=== PATIENT | female | born 1980 | race Caucasian/White ===

== ENCOUNTER 2016-04-25 20:26 | Emergency (ER) | payer SELFPAY ==
[2016-04-25] MEDS ORDERED: METHYLPRED SOD SUCC 125 MG/2 ML VIAL ONE (23:01)
[2016-04-25] MEDS ORDERED: SODIUM CHLORIDE 0.9% 1,000 ML ONE (23:01)
[2016-04-25] MEDS ORDERED: FAMOTIDINE 20 MG INJ ONE (23:05)
== END 2016-04-26 00:31 | disposition home or self-care (01) ==
LOC: ER 20:26
CPT/HCPCS: 36415; 80053; 81003; 85025; 96361; 96374; 96375